=== PATIENT | male | born 1980 | race American Indian/Alaskan Native ===

== ENCOUNTER 2016-10-27 07:17 | Inpatient (IN) | payer MEDICAID, OTHER ==
[2016-10-27 07:18] VITALS: BMI 25.1
[2016-10-27 08:08] LABS: BASO % 0.6 % (0.0-2.0); EOS # 0.2 K/uL (0.0-0.7); HEMATOCRIT 45.9 % (35.0-51.0); LYMPH # 2.3 K/uL (1.0-4.3); LYMPH % 41.6 % (20.0-40.0); MEAN CELL VOLUME 85.8 fL (80.0-94.0); MEAN CORPUSCULAR HEMOGLOBIN 27.2 pg (27.0-31.0); MEAN CORPUSCULAR HGB CONC 31.7 g/dL (33.0-37.0); MEAN PLATELET VOLUME 7.5 fL (7.2-11.7); MONO # 0.6 K/uL (0.0-0.8); RED CELL DISTRIBUTION WIDTH 13.9 % (11.5-14.5); WHITE BLOOD COUNT 5.5 K/uL (4.8-10.8)
[2016-10-27 08:16] LABS: CHLORIDE 98 mmol/L (98-107); SODIUM 140 mmol/L (132-148)
[2016-10-27 08:17] LABS: POTASSIUM 3.6 mmol/L (3.6-5.2)
[2016-10-27 08:19] LABS: ALB/GLOB RATIO 1.6 (1.0-2.1); ALKALINE PHOSPHATASE 64 U/L (38-126); ALT/SGPT 25 U/L (21-72); AST/SGOT 25 U/L (17-59); BILIRUBIN,TOTAL 0.2 mg/dL (0.2-1.3); BLOOD UREA NITROGEN 11 mg/dL (9-20); CARBON DIOXIDE 30 mmol/L (22-30); GFR AFRICAN-AMERICAN > 60; TOTAL PROTEIN 6.5 g/dL (6.3-8.3)
[2016-10-27 08:20] LABS: ALCOHOL SERUM < 10 mg/dl (0-10); CALCIUM 8.3 mg/dl (8.6-10.4); GLUCOSE,RANDOM 92 mg/dL (75-110)
[2016-10-27 08:30] LABS: RBC URINE 3 /hpf (0-3); URINE BILIRUBIN NEGATIVE (NEGATIVE); URINE BLOOD NEGATIVE (NEGATIVE); URINE COLOR Yellow (YELLOW); URINE GLUCOSE (UA) NORMAL (Normal); URINE KETONE TRACE mg/dL (NEGATIVE); URINE LEUKOCYTE ESTERASE 1+ Leu/uL (Negative); WBC URINE 36 /hpf (0-5)
[2016-10-27 08:38] LABS: URINE PROTEIN TRACE mg/dL (NEGATIVE)
--- NOTE | 2016-10-27 09:49 | C.PDOC ---
History Of Present Illness 36-year-old male, presents to the emergency department with complaints of auditory hallucinations. Patient states he is hearing voices, that are telling him to jump off a bridge. Patient has a Hx of PCP abuse, states he was given a cigarette that "did not taste right." Patient denies nausea/vomiting, diarrhea, fevers, chills, shortness of breath, chest pain, dizziness, or any other associated symptoms. No other complaints at this time. Chief Complaint (Nursing): Psychiatric Evaluation History Per: Patient History/Exam Limitations: no limitations Onset/Duration Of Symptoms: Days Current Symptoms Are (Timing): Still Present Past Medical History Reviewed: Historical Data, Nursing Documentation, Vital Signs Vital Signs: Last Vital Signs Temp 97.7 F 10/27/16 07:20 Pulse 48 L 10/27/16 07:20 Resp 18 10/27/16 07:20 BP 132/87 10/27/16 07:20 Pulse Ox 100 10/27/16 10:58 - Medical History PMH: Anxiety, Bipolar Disorder, Depression, HTN, Schizophrenia, Seizures Denies: Diabetes, Hepatitis, HIV, Chronic Kidney Disease (Hx of Rhabdomylosis ), Sexually Transmitted Disease - [facility] Procedures GROUP PSYCHOTHERAPY (08/22/16) INDIVIDUAL PSYCHOTHERAPY, COGNITIVE-BEHAVIORAL (08/22/16) Family History: States: Unknown Family Hx - Social History Hx Tobacco Use: No Hx Alcohol Use: No Hx Substance Use: Yes (PCP) - Immunization History Hx Tetanus Toxoid Vaccination: No Hx Influenza Vaccination: No Hx Pneumococcal Vaccination: No Review Of Systems Except As Marked, All Systems Reviewed And Found Negative. Constitutional: Negative for: Fever, Chills Cardiovascular: Negative for: Chest Pain Respiratory: Negative for: Shortness of Breath Gastrointestinal: Negative for: Nausea, Vomiting Skin: Negative for: Rash Neurological: Negative for: Weakness, Numbness, Headache, Dizziness Psych: Positive for: Other (AUDITORY HALLUCINATIONS) Physical Exam - Physical Exam Appears: Non-toxic, No Acute Distress Skin: Warm, Dry, No Rash Head: Atraumatic, Normacephalic Eye(s): bilateral: Normal Inspection Nose: Normal Oral Mucosa: Moist Lips: Normal Appearing Neck: Normal ROM Cardiovascular: Rhythm Regular Respiratory: Normal Breath Sounds, No Accessory Muscle Use Extremity: Normal ROM Neurological/Psych: Oriented x3, Normal Speech ED Course And Treatment - Laboratory Results Result Diagrams: 10/27/16 08:00 10/27/16 08:00 O2 Sat by Pulse Oximetry: 100 Progress Note: EtOH Serum, CMP, UDS and Urinalysis ordered and reviewed. Pt evaluated by care worker, who states patient will be admitted to Dr Harris for schizophrenia. Urine shows some WBCs, cipro 500 mg po was given and will beed to continuw 500 mg q12 for 5 days. Pt medically cleared for psychiatric admission. Disposition - Disposition Disposition: HOSPITALIZED Disposition Time: 11:05 Condition: STABLE - Clinical Impression Clinical Impression: Hallucinations, PCP abuse, Schizophrenia, UTI (urinary tract infection) - Scribe Statement The provider has reviewed the documentation as recorded by the Scribe Ron Koenig All medical record entries made by the Scribe were at my direction and personally dictated by me. I have reviewed the chart and agree that the record accurately reflects my personal performance of the history, physical exam, medical decision making, and the department course for this patient. I have also personally directed, reviewed, and agree with the discharge instructions and disposition. Decision To Admit - Pt Status Changed To: Hospital Disposition Of: Inpatient - Admit Certification Admit to Inpatient:: After my assessment, the patient will require hospitalization for at least two midnights. This is because of the severity of symptoms shown, intensity of services needed, and/or the medical risk in this patient being treated as an outpatient. - InPatient: Physician Admission Certification: I certify that this patient requires 2 or more midnights of care for the following reason:: will need more than 2 days of treatment - . Bed Request Type: Psychiatry Admitting Physician: Treva Harris Patient Diagnosis: Hallucinations, PCP abuse, Schizophrenia, UTI (urinary tract infection)
[2016-10-27 11:35] VITALS: O2SAT 98
--- NOTE | 2016-10-27 16:39 | PCM.PSYCH ---
Initial Psychiatric Evaluation - Initial Psychiatric Evaluation Type of Admission: Voluntary Legal Status: Capacity Chief Complaint (in patient's own words): i NEED HELP History of Present Illness and Precipitating Events: Patient is a 36-year-old -[place] male who is currently living alone and has a long history of schizophrenia paranoid type continuous came to the hospital with disorganized behavior and auditory hallucinations command type to hurt himself and others. Patient remained disorganized and internally preoccupied throughout the interview. He was superficially cooperative and guarded about the details. As per the hospital record, patient has been admitted to psychiatric hospital multiple times. He was last discharged from [facility] last month. He is noncompliant with his appointments and medications. He remained a poor historian. He appeared delusional, disheveled and psychotic. Patient reports that he has been hearing voices (auditory hallucinations command type) to kill himself and others. He became increasingly concerned and came to the hospital to get help. Patient also reports persecutory delusions that someone is following him. He reports irritability, anxiety and agitation. Patient admitted to using PCP but remained guarded about the quantity. He denies any drinking or any substance abuse. Past medical history HTN Current Medications: Active Medications Generic Name Dose Route Start Last Admin Trade Name Freq PRN Reason Stop Dose Admin Acetaminophen 650 mg 10/27/16 16:34 Tylenol 325mg Tab PO Q6 PRN Fever >100.4 F Benztropine Mesylate 2 mg 10/27/16 16:34 Cogentin PO Q6 PRN Extra Pyramidal Symptoms Diphenhydramine HCl 50 mg 10/27/16 16:34 Benadryl PO Q6 PRN Extra Pyramidal Symptoms Haloperidol 5 mg 10/27/16 16:34 Haldol PO Q8 PRN Moderate Agitation Haloperidol Lactate 5 mg 10/27/16 16:34 Haldol IM Q8 PRN Moderate Agitation Lorazepam 1 mg 10/27/16 16:34 Ativan PO Q6 PRN Anxiety Trazodone HCl 50 mg 10/27/16 22:00 Desyrel PO HS JAMES Past Psychiatric History - Past Psychiatric History Previous Treatment History: Inpatient Pertinent Medical Hx (Current Medical&Sleep Prob, Allergies): Allergies Allergy/AdvReac Type Severity Reaction Status Date / Time No Known Allergies Allergy Verified 10/27/16 07:33 Depakene 1,000 mg PO BID 10/27/16 Fluoxetine HCl [Prozac] 40 mg PO BID 10/27/16 Restoril 50 mg PO DAILY 10/27/16 Seroquel DAILY 10/27/16 hydroCHLOROthiazide [Hydrodiuril] 25 mg PO DAILY 10/27/16 Review of Systems - Review of Systems All systems: reviewed and no additional remarkable complaints except - Psychiatric Psychiatric: Anxiety, Auditory Hallucinations, Irritability, Paranoia, Visual Hallucinations Mental Status Examination - Personal Presentation Personal Presentation: Looks stated age - Affect Affect: Broad - Motor Activity Motor Activity: Psychomotor Agitation - Reliability in Providing Information Reliability in Providing Information: Poor, due to alteration in thoughts, Poor , due to altered mood - Speech Speech: Disorganized - Mood Mood: Anxious - Formal Thought Process Formal Thought Process: Hallucinations, Delusions, Paranoia, Loosening of associations - Hallucinations/Delusions Hallucinations: Visual, Auditory Delusions: Persecution - Obsessions/Compulsions Obsessions: No Compulsions: No - Cognitive Functions Orientation: Person, Place, Situation, Time Sensorium: Alert Attention/Concentration: Attentive Abstract Thinking: [place] Estimate of Intelligence: Below average Judgement: Imparied, as evidence by: Poor judgement, Imparied, as evidence by: Lack of insight into illness - Risk Risk: Suicidal, Homicidal, Diminished functioning - Limitations Limitations: Living alone DSM 5 DX - DSM 5 DSM 5 Diagnosis: Schizophrenia paranoid type continuous PCP use disorder severe - Recommended/Plan of Treatment Treatment Recommendations and Plan of Treatment: Schizophrenia paranoid type continuous CBT Psychoeducation Supportive therapy, group therapy, individual therapy Haldol 5 mg by mouth twice a day Depakote 500 mg by mouth HS Trazodone 50 mg by mouth daily at bedtime PCP use disorder severe CBT Psychoeducation Supportive therapy, individual therapy Use [place] for abstinence Ativan 1 mg by mouth every 6 hours when necessary HTN Continue prescribed medications Monitor signs symptoms - Smoking Cessation Smoking Cessation Initiated: No
[2016-10-27] MEDS ORDERED: Divalproex 500 mg DR Tab PO SCH (22:00)
--- NOTE | 2016-10-28 10:17 | PCM.PYCHPN ---
Psychiatric Progress Note - Psychiatric Progress Note Patient seen today, length of contact: 16 min Patient Chief Complaint: I am feeling better Problems Identified/Issues Discussed: Patient seen and evaluated, chart reviewed and discussed with the nurse. Today patient appears more disorganized and coherent. As per staff, he remained calm and cooperative, and appeared less delusional and paranoid than before. Patient reports improvement in his paranoia reports that voices are fading away now. He is taking medications and denies any suicidal ideation or homicidal ideation. Supportive therapy and psychoeducation were given. Medication Change: Yes (Increase Haldol) Medical Record Reviewed: Yes Mental Status Examination - Cognitive Function Orientation: Person, Place, Situation, Time Memory: Intact Attention: WNL Concentration: Poor Association: WNL Fund of Knowledge: Poor - Mood Mood: Anxious - Affect Affect: Constricted - Speech Speech: Soft - Formal Thought Process Formal Thought Process: Hallucinations - Suicidal Ideation Suicidal Ideation: No - Homicidal Ideation Homicidal Ideation: No Goal/Treatment Plan - Goal/Treatment Plan Need for Continued Stay: Discharge may exacerbated symptoms, Severe functional impairment Progress Toward Problem(s) and Goals/Treatment Plan: Schizophrenia paranoid type continuous CBT Psychoeducation Supportive therapy, group therapy, individual therapy Haldol 10 mg by mouth twice a day Cogentin 1 mg by mouth twice a day Depakote 500 mg by mouth HS Trazodone 50 mg by mouth daily at bedtime PCP use disorder severe CBT Psychoeducation Supportive therapy, individual therapy Use [place] for abstinence Ativan 1 mg by mouth every 6 hours when necessary HTN Continue prescribed medications Monitor signs symptoms - Smoking Cessation Smoking Cessation Initiated: No
[2016-10-29 08:05] VITALS: BP 118/80; PULSE 94; RESP 17; TEMP 97.1
--- NOTE | 2016-10-29 10:45 | PCM.PYCHDC ---
Mental Status Examination - Mental Status Examination Orientation: Person, Place, Situation, Time Memory: Intact Mood: Neutral Affect: Constricted Speech: Soft Attention: WNL Concentration: WNL Association: WNL Fund of Knowledge: WNL Formal Thought Process: No Impairment Description of patient's judgement and insight: good, fair Psychotic Thoughts and Behaviors: denies any AVH Suicidal Ideation: No Current Homicidal Ideation?: No Discharge Summary - Discharge Note Reason for Hospitalization: Patient is a 36-year-old -[place] male who is currently living alone and has a long history of schizophrenia paranoid type continuous came to the hospital with disorganized behavior and auditory hallucinations command type to hurt himself and others. Patient remained disorganized and internally preoccupied throughout the interview. He was superficially cooperative and guarded about the details. As per the hospital record, patient has been admitted to psychiatric hospital multiple times. He was last discharged from [facility] last month. He is noncompliant with his appointments and medications. He remained a poor historian. He appeared delusional, disheveled and psychotic. Patient reports that he has been hearing voices (auditory hallucinations command type) to kill himself and others. He became increasingly concerned and came to the hospital to get help. Patient also reports persecutory delusions that someone is following him. He reports irritability, anxiety and agitation. Patient admitted to using PCP but remained guarded about the quantity. He denies any drinking or any substance abuse. Consultations:: List each consultation separately and include: 1. Reason for request. 2. Findings. 3. Follow-up Summary of Hospital Course include:: 1. Description of specific treatment plan utilized for patients during their course of treatmen. 2. Summarize the time- course for resolution of acute symptoms and/or regressed behaviors. 3. Describe issues identified and worked on during hospitalization. 4. Describe medication utilized. 5. Describe medical problems identified and treated. 6. Reassessment of suicide risk Summary of Hospital Course: During the course of his stay, patient (pt) started progressively improving and he no longer remained irritable, depressed, suicidal and paranoid. His mood and paranoia were improved and he started attending groups and meetings and started socializing. Patient denied any feelings of hopelessness, helplessness, and worthlessness, denied any problem with the sleep or appetite, denied suicidal ideation or homicidal ideation. Pt denied any auditory or visual hallucinations. However he signed a 48 hours notice yesterday and requested to leave today. Some changes were made in his current medications and patient was discharged on following medications. He tolerated these medications very well and denied any side effects. Patient was also given Haldol Decanoate 50 mg IM shot. 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 Pt was educated and counseled about the risks of drinking and abusing drugs. Pt was educated and counseled to go to the ER or call 911 if pt develop suicidal ideation or homicidal ideation, worsening of symptoms or severe side effects of the meds. Prescriptions/Medication Reconciliation: Benztropine [Cogentin] 1 mg PO BID #60 tab Divalproex [Depakote DR(*BID*)] 500 mg PO HS #30 tcp traZODone [Desyrel] 50 mg PO HS #30 tab Haloperidol [Haldol] 10 mg PO BID #60 tab - Smoking Cessation Smoking Cessation Medication prescribed: No - Antipsychotic Medications Pt discharged on 2 or more routine antipsychotic medications: No
== END 2016-10-29 11:36 | disposition home or self-care (01) | DRG 430 ==
LOC: C.ER 07:17 → C.5E 11:07
PROVIDERS: ADMIT Psychiatry & Neurology Psychiatry; ATTEND Psychiatry & Neurology Psychiatry
DX: F20.0 Paranoid schizophrenia (principal); I10 Essential (primary) hypertension; N39.0 Urinary tract infection, site not specified; F16.10 Hallucinogen abuse, uncomplicated; F31.9 Bipolar disorder, unspecified; Z91.19 Patient's noncompliance with other medical treatment and regimen